=== PATIENT | female | born 1980 | race Caucasian/White ===

== ENCOUNTER 2018-02-08 20:12 | Emergency (ER) | payer OTHER ==
[2018-02-08] MEDS ORDERED: NS 1,000 ML IV ONE (20:26)
[2018-02-08] MEDS ORDERED: ONDANSETRON 4 MG/2 ML VIAL IVP ONE (20:27)
[2018-02-08] MEDS ORDERED: LORazepam 1 MG TAB PO ONE (20:34)
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
[2018-02-08 20:52] LABS: PLATELET COUNT 300 10^3/uL (150-400)
[2018-02-08 22:42] VITALS: BP 118/71
== END 2018-02-08 22:58 | disposition home or self-care (01) ==
DX: R11.0 Nausea (principal); E86.9 Volume depletion, unspecified
CPT/HCPCS: 96374; J2405